=== PATIENT | male | born 1975 | race Caucasian/White ===

== ENCOUNTER 2017-01-06 09:42 | Emergency (ER) | payer BC ==
[~2017-01-06] VITALS: Ht 190.5 cm; Wt 113.4 kg
[2017-01-06] MEDS ORDERED: HYDROcodone/APAP 5/325MG 1 TAB TABLET PO ONE (10:15)
[2017-01-06] MEDS ORDERED: LIDOCAINE/EPI/TETRACAINE TOPICAL GEL 3 ML. TP ONE (10:15)
[2017-01-06] MEDS ORDERED: DIPHTH,PERTUSS(ACELL),TET TOX 0.5 ML DISP.SYRIN. VAX IM ONE (10:15)
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
[2017-01-06 12:00] VITALS: BP 161/85
[2017-01-06] MEDS ORDERED: HYDR-971 PO (12:07)
== END 2017-01-06 12:20 | disposition home or self-care (01) ==
LOC: ER 09:42
DX: S52.91XA Unspecified fracture of right forearm, initial encounter for closed fracture (principal); S01.01XA Laceration without foreign body of scalp, initial encounter; V28.4XXA Motorcycle driver injured in noncollision transport accident in traffic accident, initial encounter; Y93.55 Activity, bike riding; Y92.488 Other paved roadways as the place of occurrence of the external cause; Y99.8 Other external cause status
CPT/HCPCS: 12002; 29125; 70450; 72125; 73110; 73130; 99284-25

== ENCOUNTER 2017-04-28 18:36 | Emergency (ER) | payer OTHER, BC ==
[2017-04-28 18:54] LABS: ADD MAN DIFF? NO
[2017-04-28 18:56] LABS: BASO # 0.1 x10^3/uL (0.0-0.2); BASO % 0 % (0-3); EOS # 0.1 x10^3/uL (0.0-0.7); EOS % 1 % (0-3); HEMOGLOBIN 17.6 g/dL (13.0-17.5); LYMPH # 2.1 x10^3/uL (1.0-4.8); LYMPH % 17 % (24-48); MEAN CORPUSCULAR HEMOGLOBIN 32 pg (25-35); MEAN CORPUSCULAR HGB CONC 35 g/dL (31-37); MEAN CORPUSCULAR VOLUME 90 fL (79-100); MONO # 1.3 x10^3/uL (0.0-1.1); MONO % 11 % (0-9); NEUT # 8.8 x10^3uL (1.8-7.7); NEUT % 71 % (31-73); PLATELET COUNT 342 x10^3/uL (140-400); RED BLOOD COUNT 5.58 x10^6/uL (4.30-5.70); RED CELL DISTRIBUTION WIDTH 13.2 % (11.5-14.5); WHITE BLOOD COUNT 12.3 x10^3/uL (4.0-11.0)
[2017-04-28] MEDS: IV NORMAL SALINE 1000ML BAG 1,000 ML IV ×4 (19:00→22:00)
[2017-04-28 19:15] LABS: ALBUMIN 4.6 g/dL (3.4-5.0); ALBUMIN/GLOBULIN RATIO 1.1 (1.0-1.7); ALK PHOS 108 U/L (46-116); ALT (SGPT) 45 U/L (16-63); ANION GAP 18 (6-14); AST (SGOT) 35 U/L (15-37); BLOOD UREA NITROGEN 23 mg/dL (8-26); BUN/CREATININE RATIO 15 (6-20); CALCIUM 9.9 mg/dL (8.5-10.1); CARBON DIOXIDE 21 mmol/L (21-32); CHLORIDE 101 mmol/L (98-107); CREATININE 1.5 mg/dL (0.7-1.3); GFR 51.3; GLUCOSE 107 mg/dL (70-99); SODIUM 140 mmol/L (136-145); TOTAL BILIRUBIN 1.4 mg/dL (0.2-1.0); TOTAL PROTEIN 8.8 g/dL (6.4-8.2)
[2017-04-28 19:16] LABS: POTASSIUM 2.9 mmol/L (3.5-5.1)
[2017-04-28 19:17] LABS: ACETAMIN < 2 mcg/ml (10-30); ETHANOL 67 mg/dL (0-10); SALIC < 2.8 mg/dL (2.8-20.0)
[2017-04-28 19:34] LABS: MAGNESIUM 2.3 mg/dL (1.8-2.4)
[2017-04-28] MEDS: POTASSIUM CHLORIDE 20 MEQ TABLET.ER. PO ×2 (21:10)
[2017-04-28] MEDS ORDERED: LIDOCAINE 2% JELLY 6ML IN APPLICATOR. (22:57)
[2017-04-28] MEDS: LIDOCAINE 2% JELLY 6ML IN APPLICATOR. MM (23:00)
[2017-04-28 23:11] LABS: AGAP ISTAT 19 mmol/L (6-14); BUN ISTAT 22 mg/dL (8-26); CHLORIDE ISTAT 106 mmol/L (98-110); CREATININE ISTAT 1.1 mg/dL (0.5-1.4); GLUCOSE ISTAT 116 mg/dL (70-99); HEMATOCRIT ISTAT 45 % (37-52); HEMOGLOBIN ISTAT 15.3 g/dL (14-18); ION CA ISTAT 1.12 mmol/L (1.13-1.32); POTASSIUM ISTAT 3.2 mmol/L (3.5-5.0); SODIUM ISTAT 141 mmol/L (135-145); TOT CO2 ISTAT 20 mmol/L (23-32)
[2017-04-28 23:13] LABS: BILIRUBIN,URINE NEGATIVE (NEG); CLARITY,URINE CLEAR; COLOR,URINE YELLOW; GLUCOSE,URINE NEGATIVE (NEG); NITRITE,URINE NEGATIVE (NEG); PH,URINE 5.5; PROTEIN,URINE 30 mg/dL (NEG-TRACE)
[2017-04-28 23:20] LABS: BARBITURATES NEG (NEG); BENZODIAZEPINES NEG (NEG); CANNABINOIDS NEG (NEG); COCAINE NEG (NEG); METHADONE NEG (NEG); OPIATES NEG (NEG); PHENCYCLIDINE NEG (NEG)
[2017-04-28 23:21] LABS: WBC,URINE OCC /HPF (0-4)
[2017-04-28 23:22] LABS: BACTERIA,URINE 0 /HPF (0-FEW); HYALINE CASTS, URINE OCCASIONAL /HPF
[2017-04-28 23:30] LABS: AMPHETAMINE/METHAMPHETAMINE POS (NEG); ETHANOL, URINE POS (NEG)
== END 2017-04-29 00:05 | disposition short-term general hospital (02) ==
LOC: ER 04-29 00:05
DX: T46 Poisoning by, adverse effect of and underdosing of agents primarily affecting the cardiovascular system (principal); T43.223A Poisoning by selective serotonin reuptake inhibitors, assault, initial encounter; R11.2 Nausea with vomiting, unspecified; E78.00 Pure hypercholesterolemia, unspecified; F10.129 Alcohol abuse with intoxication, unspecified; F15.90 Other stimulant use, unspecified, uncomplicated; R45.851 Suicidal ideations; F32.9 Major depressive disorder, single episode, unspecified; Y92.89 Other specified places as the place of occurrence of the external cause
CPT/HCPCS: 36415; 51701; 80047; 80053; 80307; 80329; 81001; 83735; 85025; 93005; 96360; 96361; 99285-25; G0480; J7030